=== PATIENT | female | born 1990 | race Caucasian/White ===

== ENCOUNTER 2023-05-15 11:58 | Emergency (ER) | payer BC, SELFPAY ==
[2023-05-15 12:01] VITALS: BP 119/81
--- NOTE | 2023-05-15 12:59 | ED.GENMED ---
History of Present Illness
<Silvia Spicer PA-C - Last Filed: 05/16/23 18:03>
General
Chief Complaint: Fever
Source: patient
Exam Limitations: none
Time Seen by Provider: 05/15/23 12:26
Nursing documentation reviewed up to this point in time: agreed with
Travel History
Have you had any contact with someone who has COVID-19?: No
Do you have any symptoms of coronavirus? Fever > 100 degrees, chills, cough, shortness of breath, sore throat, loss of taste or smell, muscle aches, or headache?: Yes
Symptoms:: see triage note
History of Present Illness
History of Present Illness:
32 Y/O f w no sig pmh
has had fever, congestion, sore throat x 3 days
went to urgent care 2 days ago and was tested for strep which was neg but the provider covered her with amoxicillin which sh ehas had 5 total doses of so far
she says that she didn't have a fever until 3/20 at night and has had fluctuating temps to 102 treated with motrin and tylenol since
she feels worse since starting the antibiotics
she has a swollen lymph nodes (particularly large on on L tonsillar region) which really started more recently
she has not had neck stiffness, vomiting, rash, ear ache, inability to swallow, muffled voice, trouble breathig
pt says her last dose of motrin was around 10 am and her fever broke just before arriva
daughter is in daycare and had influenza 2 weeks ago
Past History
<Silvia Spicer PA-C - Last Filed: 05/16/23 18:03>
Past History
ED Past Medical History: None
ED Past Surgical History: None
Social History
Tobacco: Non-smoker
Alcohol: None
Drug: None
Personal:
Living: with family
Employment: Employed
Review of Systems
<Silvia Spicer PA-C - Last Filed: 05/16/23 18:03>
Review of Systems
Allergies reviewed?: Yes
All Other Systems: Not applicable
Phy Exam
<Silvia Spicer PA-C - Last Filed: 05/16/23 18:03>
Physical Exam
Physical Exam:
GENERAL: Alert , in no apparent distress, nontoxic, but appears not well
EYE: pupils equal and reactive
NECK: supple, no meningismus
b/l anter cervical DEB with a very prominant L tonsillar node, large 3 cm with normal skin;
ENT: b/l TM s clear, pharynx erythematous tonsillar hypertrophy 3+ with midline uvula; no petechiae, normal phonation, normal swallowing with some pain but able to tolerate;
CARDIAC: Regular rate and rhythm, no edema
LUNGS: Clear breath sounds bilaterally, no acute respiratory distress, no wheezes/rales/rhonchi, occ cough
ABDOMEN: Soft, without focal tenderness, no r/g, no cvat, normal bowel sounds
NEUROLOGICAL: Alert and oriented, no focal neuro deficits
SKIN: Warm and dry, skin intact.
MUSCULOSKELETAL: No edema, well perfused.
PSYCH: Normal and appropriate interaction.
Course
<Silvia Spicer PA-C - Last Filed: 05/16/23 18:03>
Orders/Labs/Results
Orders:
Orders
05/15/23 12:57
0.9% Sodium Chloride 1000 ml [Nss] 1,000 ml IV BOLUS
Acetaminophen [Tylenol] 1,000 mg PO NOW STA
Ketorolac [Toradol] 15 mg IV NOW STA
05/15/23 12:58
Test Result ONCE
05/15/23 13:09
Influenza A+B Rapid Molecular Urgent
EDA Source: Nasal Swab
Specimen Description:
Rapid Strep Group A Urgent
EDA Source: Throat/Pharynx
Specimen Description:
Date Specimen was Collected: 05/15/23
Time Specimen was Collected: 13:03
05/15/23 13:14
COVID-19 Antigen Urgent
Source: Nasal Swab
Complete Blood Count/With Diff Urgent
Comprehensive Metabolic Panel Urgent
HCG, Serum Qualitative Screen Urgent
Monotest Urgent
Blood Culture Q30M
EDA Source: Blood/Venous
Specimen Description:
05/15/23 14:18
Blood Culture Q30M
EDA Source: Blood/Venous
Specimen Description:
05/15/23 15:39
Clindamycin HCl [Cleocin] 300 mg PO NOW STA
Dexamethasone Sod Phosphate [Decadron] 10 mg IV NOW STA
05/15/23 15:47
CT Neck With Iv Contrast Urgent
Comment:
Reason For Exam: UNILATERAL NECK SWELLING, FEVER SORE THROAT
Abnormal Lab Results
05/15/23
13:14
RBC 3.95 L 10^6/uL
(4.20-5.40)
Hgb 11.8 L g/dL
(12.0-16.0)
Hct 33.6 L %
(37.0-47.0)
Monocytes % 10.2 H %
(1.7-9.3)
Sodium 134 L mmol/L
(135-145)
Calcium 8.3 L mg/dl
(8.4-10.2)
05/15/23 13:14
05/15/23 13:14
Vital Signs
Temp: 100.2 F
Initial and Last Documented VS:
Initial Vital Signs
Temp Pulse Resp BP Pulse Ox
98.9 F 98 18 119/81 97
05/15/23 12:01 05/15/23 12:01 05/15/23 12:01 05/15/23 12:01 05/15/23 12:01
Last Documented Vital Signs
Temp Pulse Resp BP Pulse Ox
98.9 F 102 16 112/62 97
05/15/23 14:59 05/15/23 14:59 05/15/23 14:59 05/15/23 14:59 05/15/23 14:59
<Toby Herron MD - Last Filed: 05/15/23 16:46>
Orders/Labs/Results
Orders:
Orders
05/15/23 12:57
0.9% Sodium Chloride 1000 ml [Nss] 1,000 ml IV BOLUS
Acetaminophen [Tylenol] 1,000 mg PO NOW STA
Ketorolac [Toradol] 15 mg IV NOW STA
05/15/23 12:58
Test Result ONCE
05/15/23 13:09
Influenza A+B Rapid Molecular Urgent
EDA Source: Nasal Swab
Specimen Description:
Rapid Strep Group A Urgent
EDA Source: Throat/Pharynx
Specimen Description:
Date Specimen was Collected: 05/15/23
Time Specimen was Collected: 13:03
05/15/23 13:14
COVID-19 Antigen Urgent
Source: Nasal Swab
Complete Blood Count/With Diff Urgent
Comprehensive Metabolic Panel Urgent
HCG, Serum Qualitative Screen Urgent
Monotest Urgent
Blood Culture Q30M
EDA Source: Blood/Venous
Specimen Description:
05/15/23 14:18
Blood Culture Q30M
EDA Source: Blood/Venous
Specimen Description:
05/15/23 15:39
Clindamycin HCl [Cleocin] 300 mg PO NOW STA
Dexamethasone Sod Phosphate [Decadron] 10 mg IV NOW STA
05/15/23 15:47
CT Neck With Iv Contrast Urgent
Comment:
Reason For Exam: UNILATERAL NECK SWELLING, FEVER SORE THROAT
Abnormal Lab Results
05/15/23
13:14
RBC 3.95 L 10^6/uL
(4.20-5.40)
Hgb 11.8 L g/dL
(12.0-16.0)
Hct 33.6 L %
(37.0-47.0)
Monocytes % 10.2 H %
(1.7-9.3)
Sodium 134 L mmol/L
(135-145)
Calcium 8.3 L mg/dl
(8.4-10.2)
05/15/23 13:14
05/15/23 13:14
Vital Signs
Initial and Last Documented VS:
Initial Vital Signs
Temp Pulse Resp BP Pulse Ox
98.9 F 98 18 119/81 97
05/15/23 12:01 05/15/23 12:01 05/15/23 12:01 05/15/23 12:01 05/15/23 12:01
Last Documented Vital Signs
Temp Pulse Resp BP Pulse Ox
98.9 F 102 16 112/62 97
05/15/23 14:59 05/15/23 14:59 05/15/23 14:59 05/15/23 14:59 05/15/23 14:59
[place];Chan Morelos PA-C - Last Filed: 05/15/23 18:03>
Orders/Labs/Results
Orders:
Orders
05/15/23 12:57
0.9% Sodium Chloride 1000 ml [Nss] 1,000 ml IV BOLUS
Acetaminophen [Tylenol] 1,000 mg PO NOW STA
Ketorolac [Toradol] 15 mg IV NOW STA
05/15/23 12:58
Test Result ONCE
05/15/23 13:09
Influenza A+B Rapid Molecular Urgent
EDA Source: Nasal Swab
Specimen Description:
Rapid Strep Group A Urgent
EDA Source: Throat/Pharynx
Specimen Description:
Date Specimen was Collected: 05/15/23
Time Specimen was Collected: 13:03
05/15/23 13:14
COVID-19 Antigen Urgent
Source: Nasal Swab
Complete Blood Count/With Diff Urgent
Comprehensive Metabolic Panel Urgent
HCG, Serum Qualitative Screen Urgent
Monotest Urgent
Blood Culture Q30M
EDA Source: Blood/Venous
Specimen Description:
05/15/23 14:18
Blood Culture Q30M
EDA Source: Blood/Venous
Specimen Description:
05/15/23 15:39
Clindamycin HCl [Cleocin] 300 mg PO NOW STA
Dexamethasone Sod Phosphate [Decadron] 10 mg IV NOW STA
05/15/23 15:47
CT Neck With Iv Contrast Urgent
Comment:
Reason For Exam: UNILATERAL NECK SWELLING, FEVER SORE THROAT
Abnormal Lab Results
05/15/23
13:14
RBC 3.95 L 10^6/uL
(4.20-5.40)
Hgb 11.8 L g/dL
(12.0-16.0)
Hct 33.6 L %
(37.0-47.0)
Monocytes % 10.2 H %
(1.7-9.3)
Sodium 134 L mmol/L
(135-145)
Calcium 8.3 L mg/dl
(8.4-10.2)
05/15/23 13:14
05/15/23 13:14
Vital Signs
Initial and Last Documented VS:
Initial Vital Signs
Temp Pulse Resp BP Pulse Ox
98.9 F 98 18 119/81 97
05/15/23 12:01 05/15/23 12:01 05/15/23 12:01 05/15/23 12:01 05/15/23 12:01
Last Documented Vital Signs
Temp Pulse Resp BP Pulse Ox
98.9 F 102 16 112/62 97
05/15/23 14:59 05/15/23 14:59 05/15/23 14:59 05/15/23 14:59 05/15/23 14:59
<Silvia Spicer PA-C - Last Filed: 05/16/23 18:03>
MDM/Problems Addressed
Differential Diagnosis Includes:
lymphadenitis, mono, mumps, RPA, MANAGER GAMES
MDM/Problems Addressed:
32 y/o F with 1 week sore throat, uri sxs
went to [facility] 2 days ago and tested neg for strep but was started on empiric abx amox
started spiking temps that night and has had temps when meds are about to wear off, tmax 102
she feels worse after starting abx
and also has large node left neck
radha to move neck, speak, swallow etc
tender L tonsillar DEB
posterior pharynx with swollen tonsils but no significant erythemat or exudate
no parotidits
labs were reassuring
but i presuemd pt would have flu or mono based on sxs
and they were neg
d/w ed attending, decided to CT neck to r/o deep space infection and advance abx to [facility].
willian dout pending ct.
<Silvia Spicer PA-C - Last Filed: 05/16/23 18:03>
*Critical Care Note
Total Time (30-74mins, 75-104mins- exclusive of procedures): Not Applicable
<Chan Morelos PA-C - Last Filed: 05/15/23 18:03>
Update Note
Update Note:
5:56 PM. Assumed care of patient pending CT of neck. Patient here with persistent throat pain and adenopathy. Patient reexamined. No distress. No trismus or drooling feels somewhat improved after treatment here. CT of the neck with IV contrast
was ordered to evaluate for deep space infection or abscess. There is no abscess. Radiologist questions possible cellulitis. Emergency room attending saw the patient as well. Plan will be to switch amoxicillin to clindamycin and discharged home.
ED Attending Note
<Silvia Spicer PA-C - Last Filed: 05/16/23 18:03>
-
Portions of this chart may have been created with voice recognition software.� Occasional wrong word or��sound alike� substitutions may have occurred due to the inherent limitations of voice recognition software.
<Toby Herron MD - Last Filed: 05/15/23 16:46>
ED Attending Note
Patient seen and examined by attending physician: Yes
ED Attending Note:
I have seen and evaluated the patient with a [id number] encounter. I have spoken to the advance practicer provider and involved in the medical history, the physical exam, medical decision making.
Evaluation and management service: agree unless noted differently below.
Results interpretation: agree unless noted differently below.
Focused HPI: 32-year-old female with no significant chronic medical issues presents for evaluation of sore throat and fever. Patient has been sick for the past week with sore throat has had high fevers for the past 3 days or so. Tmax 102 �F at
home. She denies any drooling. No trismus. No change in her voice. No breathing difficulties. She was seen in urgent care she reports that she had a negative strep swab but was treated empirically with amoxicillin given degree of tonsillar
swelling. She has taken this for the past 3 days but has not noticed improvement which prompted ER visit today.
Physical exam: Awake alert not in distress. Vital signs significant for mild tachycardia. She has no trismus, no tongue elevation; she is handling her secretions. Phonating with normal voice. She has bilateral significant tonsillar enlargement
with exudate and erythema of the tonsils. She has a midline uvula with no edema. She has significant left-sided greater than right cervical adenopathy. She can move the neck through full range of motion with no discomfort.
Medical Decision Makin-year-old female presents with persistent sore throat and fever for the past week not improving despite antibiotics for the past 3 days. Exam as above. Labs sent off which were essentially unremarkable, viral swabs
including Monospot all negative. Will send for CT neck to rule out peritonsillar abscess. If negative plan to switch to clindamycin and discharge with ENT referral.
Discharge Plan
Departure
Patient Disposition: Home (Routine Discharge)
Date of Disposition: 05/15/23
Time of Disposition: 17:56
Patient with high blood pressure during this ER visit?: No
Condition: Fair
Covid-19: Negative COVID-19
Discharge Problem:
Pharyngitis, Acute upper respiratory infection, Lymphadenopathy
Instructions: Viral Syndrome (DC)
Prescriptions:
New
clindamycin HCl 300 mg capsule
300 mg PO TID Qty: 30 0RF
No Action
Vitamin
1 tab PO DAILY
Probiotic
1 tab PO DAILY
acetaminophen 325 mg Tablet
650 mg PO Q4HPRN PRN (Reason: mild pain) Qty: 0 0RF
ibuprofen 600 mg Tablet
600 mg PO Q6HPRN PRN (Reason: moderate pain/cramps) Qty: 0 0RF
Referrals:
Rob Barnhart MD [Active] - As needed (ENT)
NONE,* [Family Provider] -
Activity Restrictions/Additional Instructions:
Stop amoxicillin. Start clindamycin. There is no deep space infection or abscess on your CAT scan today. Please return here for worsening symptoms otherwise follow-up with ENT
Interventions
Interventions:
*Risk Screen - Suicide Last Done: 05/15/23 12:01
*General Assessment Last Done: 05/15/23 12:01
*Neglect/Abuse Screening Last Done: 05/15/23 12:01
*ED COVID-19 Vaccine History Last Done: 05/15/23 12:01
*Nursing Disposition Last Done: 05/15/23 18:10
ED- Neurological Assessment Last Done: 05/15/23 13:15
ED-Skin Assessment Last Done: 05/15/23 13:15
Discharge Date and Time
Discharge Date/Time: 05/15/23 18:10
[2023-05-15] MEDS: NSS 1000 IV (13:19)
[2023-05-15] MEDS: TYLENOL 1000 MG PO (13:20)
[2023-05-15] MEDS: TORADOL 15 MG IV (13:20)
[2023-05-15 13:23] LABS: % Basophils 0.4 % (0-2); % Eosinophils 0.8 % (0-6); % Immature Granulocytes 0.4 % (0-0.5); % Lymphocytes 23.7 % (20.5-51.1); % Monocytes 10.2 % (1.7-9.3); % Neutrophils 64.5 % (42.2-75.2); Absolute Lymphocytes 1.2 10^3/uL (1.2-3.4); Absolute Monocytes 0.5 10^3/uL (0.1-0.6); Absolute Neutrophils 3.2 10^3/uL (1.4-6.5); Hematocrit 33.6 % (37.0-47.0); Hemoglobin 11.8 g/dL (12.0-16.0); Mean Corp Hgb Conc. 35.1 g/dL (33.0-37.0); Mean Corpuscular Hgb 29.9 pg (27.0-31.0); Mean Corpuscular Volume 85.1 fL (81.0-99.0); Mean Platelet Volume 9.3 fL (7.4-10.4); Nucleated Red Blood Cells % 0 %; Platelet Count 206 10^3/uL (130-400); Red Blood Cell Count 3.95 10^6/uL (4.20-5.40); Red Cell Dist. Width 12.5 % (11.5-14.5); White Blood Cell Count 4.9 10^3/uL (4.8-10.8)
[2023-05-15 13:42] LABS: COVID-19 Antigen Negative (Negative)
[2023-05-15 13:50] LABS: ALT (SGPT) 14 U/L (0-35); AST (SGOT) 20 U/L (14-36); Albumin 3.8 g/dl (3.5-5.0); Alkaline Phosphatase 54 U/L (38-126); Blood Urea Nitrogen 7 mg/dl (7-17); Calcium 8.3 mg/dl (8.4-10.2); Carbon Dioxide 25 mmol/L (22-30); Chloride 104 mmol/L (98-107); Glucose 87 mg/dl (70-99); Potassium 3.6 mmol/L (3.5-5.1); Sodium 134 mmol/L (135-145); Total Bilirubin 0.5 mg/dl (0.2-1.3); Total Protein 6.3 g/dl (6.3-8.2); eGFR > 60.00
[2023-05-15 13:57] LABS: HCG, Serum Qualitative Screen Negative
[2023-05-15 14:20] LABS: Monotest Negative (Negative)
[2023-05-15 14:59] VITALS: BP 112/62
[2023-05-15] MEDS: DECADRON 10 MG IV (16:05)
== END 2023-05-15 18:10 | disposition home or self-care (01) ==
LOC: EMR 11:58
PROVIDERS: Physician Assistant; EMERGENCY PHYSICIAN Emergency Medicine
DX: J02.9 Acute pharyngitis, unspecified (principal); J06.9 Acute upper respiratory infection, unspecified; R59.1 Generalized enlarged lymph nodes; Z11.52 Encounter for screening for COVID-19
CPT/HCPCS: 99285; 96374; 96375; 96361; 70491; 80053; 84703; 85025; 86308; 87040; 87070; 87502; 87811; 87880; Q9967

== ENCOUNTER 2023-06-13 11:50 | Emergency (ER) | payer BC, SELFPAY ==
[2023-06-13 11:57] VITALS: BP 116/79
[2023-06-13 12:27] LABS: % Eosinophils 3.8 % (0-6); % Lymphocytes 31.6 % (20.5-51.1); % Monocytes 11.1 % (1.7-9.3); % Neutrophils 53.5 % (42.2-75.2); Absolute Eosinophils 0.1 10^3/uL (0-0.7); Absolute Monocytes 0.4 10^3/uL (0.1-0.6); Absolute Neutrophils 1.7 10^3/uL (1.4-6.5); Hematocrit 39.4 % (37.0-47.0); Hemoglobin 13.3 g/dL (12.0-16.0); Mean Corp Hgb Conc. 33.8 g/dL (33.0-37.0); Mean Corpuscular Volume 88.9 fL (81.0-99.0); Nucleated Red Blood Cells % 0 %; Platelet Count 162 10^3/uL (130-400); Red Blood Cell Count 4.43 10^6/uL (4.20-5.40); Red Cell Dist. Width 12.5 % (11.5-14.5); White Blood Cell Count 3.2 10^3/uL (4.8-10.8)
[2023-06-13 12:32] LABS: Urine Albumin Negative (Neg - Trace); Urine Bilirubin Negative (Negative); Urine Character Clear (Clear); Urine Color Yellow; Urine Glucose Negative (Negative); Urine Ketone Negative (Negative); Urine Leukocyte Negative (Negative); Urine Nitrite Negative (Negative); Urine Occult Blood Negative (Negative); Urine Specific Gravity 1.015 (<1.030); Urine Urobilinogen Negative (Neg - 1+)
[2023-06-13 12:42] LABS: COVID-19 Antigen Negative (Negative)
[2023-06-13 12:44] LABS: ALT (SGPT) 23 U/L (0-35); AST (SGOT) 25 U/L (14-36); Albumin 4.4 g/dl (3.5-5.0); Alkaline Phosphatase 49 U/L (38-126); Blood Urea Nitrogen 10 mg/dl (7-17); Calcium 9.1 mg/dl (8.4-10.2); Carbon Dioxide 26 mmol/L (22-30); Chloride 104 mmol/L (98-107); Glucose 81 mg/dl (70-99); Sodium 136 mmol/L (135-145); Total Bilirubin 0.4 mg/dl (0.2-1.3); Total Protein 7.1 g/dl (6.3-8.2); eGFR > 60.00
[2023-06-13 13:07] LABS: Potassium 4.2 mmol/L (3.5-5.1)
[2023-06-13 13:24] LABS: HCG, Serum Qualitative Screen Negative
[2023-06-13] MEDS: MOTRIN 600 MG PO (14:08)
[2023-06-13 14:09] VITALS: BMI 28.1
[2023-06-13 14:18] VITALS: BP 110/82
--- NOTE | 2023-06-13 14:33 | ED.GENMED ---
History of Present Illness
General
Chief Complaint: Fever
Source: patient and spouse
Exam Limitations: none
Time Seen by Provider: 06/13/23 13:11
Nursing documentation reviewed up to this point in time: agreed with
Travel History
Have you had any contact with someone who has COVID-19?: No
Do you have any symptoms of coronavirus? Fever > 100 degrees, chills, cough, shortness of breath, sore throat, loss of taste or smell, muscle aches, or headache?: Yes
Symptoms:: fever
History of Present Illness
History of Present Illness:
Patient to ED with complaint of fever and low back pain. States symptoms started on . Taking IBu with temporary relief of her fever and pain. States she had labs yesterday and was told by PCP WBC was 2.5 , Advised to come to ED. Denies
headache, neck pain, n/v/d. No skin rash. States she feels better than she did on . Brought to ED by spouse for eval.
Past History
Past History
ED Past Medical History: None
ED Past Surgical History: None
Social History
Tobacco: Non-smoker
Alcohol: None
Drug: None
Personal:
Living: with family
Employment: Employed
Review of Systems
Review of Systems
Allergies reviewed?: Yes
All Other Systems: ROS reviewed and negative except as documented in HPI and ROS
Constitutional: Reports fever
EENT: Reports no symptoms
Respiratory: Reports no symptoms
Cardiac: Reports no symptoms
ABD/GI: Reports no symptoms
: Reports no symptoms
Musculoskeletal: Reports back pain (low back pain)
Skin: Reports no symptoms
Neurological: Reports no symptoms
Psychiatric: Reports no symptoms
Phy Exam
General Physical Exam
General Presentation: well appearing and no apparent distress
General age: appears stated age
General Skin: warm and dry
General Habitus: normal
General Mental: alert
ENT Exam
ENT Exam: EOMI, TM's normal, neck supple and swallowing well
Pulmonary Exam
Pulmonary Exam: lungs clear and no respiratory distress
Gastrointestinal Exam
Gastrointestinal Exam: non tender and soft
Musculoskeletal Exam
Musculoskeletal Exam: full ROM and neuro vasc intact
Skin Exam
Skin Exam: normal color, warm/dry and no rash
Psychiatric Exam
Psychiatric Exam: normal mood/affect
Course
Orders/Labs/Results
Orders:
Orders
06/13/23 12:09
COVID-19 Antigen Urgent
Source: Nasal Swab
Complete Blood Count/With Diff Urgent
Comprehensive Metabolic Panel Urgent
HCG, Serum Qualitative Screen Urgent
Comment: ADD ON
Urinalysis Reflex To Culture Urgent
Date Specimen was Collected: 06/13/23
Time Specimen was Collected: 12:01
Blood Culture Urgent
EDA Source: Blood/Venous
Specimen Description:
Date Specimen was Collected: 06/13/23
Time Specimen was Collected: 12:01
INF RAPID [Influenza A+B Rapid Molecular] Urgent
EDA Source: Nasal Swab
Specimen Description:
Date Specimen was Collected: 06/13/23
Time Specimen was Collected: 12:01
06/13/23 12:44
Add On- LAB Urgent
Tests Added?: hcg serum
06/13/23 13:35
Ibuprofen [Motrin] 600 mg PO NOW STA
Abnormal Lab Results
06/13/23
12:09
WBC 3.2 L 10^3/uL
(4.8-10.8)
Absolute Lymphs (auto) 1.0 L 10^3/uL
(1.2-3.4)
Monocytes % 11.1 H %
(1.7-9.3)
06/13/23 12:09
06/13/23 12:09
Vital Signs
Initial and Last Documented VS:
Initial Vital Signs
Temp Pulse Resp BP Pulse Ox
99 F 80 20 116/79 100
06/13/23 11:57 06/13/23 11:57 06/13/23 11:57 06/13/23 11:57 06/13/23 11:57
Last Documented Vital Signs
Temp Pulse Resp BP Pulse Ox
98.7 F 75 18 110/82 98
06/13/23 14:18 06/13/23 14:18 06/13/23 14:18 06/13/23 14:18 06/13/23 14:18
*Pulse Oximetry
Patient hypoxic: no
*Critical Care Note
Total Time (30-74mins, 75-104mins- exclusive of procedures): Not Applicable
Update Note
Update Note:
Labs reviewed with patient. WBC 3.2 today, improved form 2.5 yesterday. Most likely viral cause. Afebrile in dept. Given IBU at her request for feeling chilled. Improved with ibuprofen. SHe is discharged home and will follow up with PCP on
Thursday. Recommend repeat CBC 1 week. She was given instructions on s/s to return to ED and she is agreeable to plan.
ED Attending Note
-
Portions of this chart may have been created with voice recognition software.� Occasional wrong word or��sound alike� substitutions may have occurred due to the inherent limitations of voice recognition software.
Discharge Plan
Departure
Patient Disposition: Home (Routine Discharge)
Date of Disposition: 06/13/23
Time of Disposition: 14:32
Patient with high blood pressure during this ER visit?: No
Condition: Good
Covid-19: Not Applicable
Discharge Problem:
Fever
Instructions: Fever, Adult (DC), Viral Syndrome (DC)
Prescriptions:
No Action
Vitamin
1 tab PO DAILY
Probiotic
1 tab PO DAILY
acetaminophen 325 mg Tablet
650 mg PO Q4HPRN PRN (Reason: mild pain) Qty: 0 0RF
ibuprofen 600 mg Tablet
600 mg PO Q6HPRN PRN (Reason: moderate pain/cramps) Qty: 0 0RF
clindamycin HCl 300 mg capsule
300 mg PO TID Qty: 30 0RF
Referrals:
Cr Redmond MD [Family Provider] - Follow up in 2-3 days
Activity Restrictions/Additional Instructions:
Return to the emergency department immediately for fever not responding to tylenol and motrin, weakness, lethargy, or for any further concerns.
Interventions
Interventions:
*Risk Screen - Suicide Last Done: 06/13/23 14:17
*General Assessment Last Done: 06/13/23 14:09
*Neglect/Abuse Screening Last Done: 06/13/23 14:17
ED- Fall Risk Assessment Last Done: 06/13/23 14:17
*ED COVID-19 Vaccine History Last Done: 06/13/23 14:09
*Nursing Disposition Last Done: 06/13/23 15:15
ED- Neurological Assessment Last Done: 06/13/23 14:17
ED-Skin Assessment Last Done: 06/13/23 14:17
Discharge Date and Time
Discharge Date/Time: 06/13/23 15:28
Print Language: MONTSERRATIAN
== END 2023-06-13 15:28 | disposition home or self-care (01) ==
LOC: EMR 11:50
PROVIDERS: EMERGENCY PHYSICIAN Emergency Medicine; FAMILY PHYSICIAN Family Medicine
DX: R50.9 Fever, unspecified (principal); M54.50 Low back pain, unspecified; Z11.52 Encounter for screening for COVID-19
CPT/HCPCS: 99283; 80053; 81003; 84703; 85025; 87040; 87502; 87811